=== PATIENT | female | born 1980 | race African-American/Black ===

== ENCOUNTER 2017-03-18 11:41 | Emergency (ER) | payer MEDICAID ==
[~2017-03-18] VITALS: Ht 157.5 cm; Wt 69.0 kg
[2017-03-18 12:00] VITALS: BP 102/66
[2017-03-18] MEDS ORDERED: IBUPROFEN 600MG TABLET PO ONE (14:45)
== END 2017-03-18 17:00 | disposition left against medical advice (07) ==
LOC: ER 13:30
DX: S39.012A Strain of muscle, fascia and tendon of lower back, initial encounter (principal); M54.2 Cervicalgia; V49.59XA Passenger injured in collision with other motor vehicles in traffic accident, initial encounter; Y93.89 Activity, other specified; Y92.410 Unspecified street and highway as the place of occurrence of the external cause; Z32.01 Encounter for pregnancy test, result positive
CPT/HCPCS: 81025; 99282